=== PATIENT | female | born 1950 | race Caucasian/White ===

== ENCOUNTER 2020-05-26 11:04 | Outpatient (REF) | payer OTHER, SELFPAY ==
[2020-05-26 11:09] VITALS: BP 120/65; PULSE 54; RESP 16; TEMP 36.1; O2SAT 100
[2020-05-26 11:12] VITALS: BMI 22.7
== END 2020-05-26 11:05 | disposition home or self-care (01) ==
LOC: HO.MS 11:04
PROVIDERS: PCP Internal Medicine; Visit Provider Ophthalmology
PROC: (CPT 66821; principal; 2020-05-26 14:00)
DX: H26.492 Other secondary cataract, left eye (principal); Z96.1 Presence of intraocular lens; E07.9 Disorder of thyroid, unspecified; J45.909 Unspecified asthma, uncomplicated; Z79.899 Other long term (current) drug therapy; Z88.8 Allergy status to other drugs, medicaments and biological substances
CPT/HCPCS: 66821

== ENCOUNTER 2022-05-31 13:17 | Outpatient (REF) | payer MEDICARE, OTHER, SELFPAY ==
[2022-05-31 13:56] LABS: MANUAL DIFF FLAG NO
[2022-05-31 13:59] LABS: Basophils Percent Auto 0.6 % (0-2); Eosinophils Absolute Auto 0.1 X10*3/uL (0.0-0.4); Eosinophils Percent Auto 1.1 % (0-4); Hematocrit 39.6 % (37.0-47.0); Hemoglobin 12.8 g/dl (12.0-16.0); Imm Gran Abs Auto 0.02 X10*3/uL (0.00-0.03); Imm Gran Pct Auto 0.4 % (0.0-0.4); Lymphocytes Percent Auto 17.9 % (20-40); Mean Corpuscular HGB Conc 32.3 g/dl (31.0-35.0); Mean Corpuscular Hemoglobin 29.7 pg (27.0-33.0); Mean Corpuscular Volume 91.9 fL (80.0-98.0); Mean Platelet Volume 10.5 fL (9.4-12.3); Monocytes Absolute Auto 0.3 X10*3/uL (0.1-1.2); Monocytes Percent Auto 6.3 % (2-11); Neutrophils Percent Auto 73.7 % (45-73); Platelet Count 211 X10*3/uL (160-400); Red Blood Count 4.31 X10*6/uL (4.20-5.50); Red Cell Distribution Width 11.7 % (11.0-16.0); White Blood Count 5.4 X10*3/uL (4.8-10.8)
[2022-05-31 14:54] LABS: Alanine Aminotransferase 20 U/L (0-31); Albumin Level 4.3 g/dL (3.5-5.0); Alkaline Phosphatase 93 U/L (39-117); Anion Gap 10 (12-20); Aspartate Amino Transferase 21 U/L (5-31); Bilirubin Total 0.6 mg/dL (0.0-1.0); Blood Urea Nitrogen 13 mg/dL (9-16); Calcium 9.7 mg/dL (8.4-10.2); Carbon Dioxide 30 mmol/L (22-29); Chloride 103 mmol/L (96-108); Cholesterol 236 mg/dL; Estimated Glomerular Filt Rate > 60; Glucose Fasting 82 mg/dL (60-99); HDL Cholesterol 89 mg/dL; LDL Cholesterol Calculated 137 mg/dl; Potassium 4.4 mmol/L (3.3-5.1); Sodium 139 mmol/L (135-145); TSH reflex Free T4 1.23 uIU/mL (0.32-4.0); Total Protein 6.9 g/dL (6.5-8.0); Triglycerides 53 mg/dL; Vitamin D 25-OH Total 39.2 ng/mL (>30)
== END 2022-05-31 13:18 | disposition home or self-care (01) ==
LOC: HO.HMGCLDS 13:17
PROVIDERS: PCP Internal Medicine; Visit Provider Internal Medicine
DX: Z00.00 Encounter for general adult medical examination without abnormal findings (principal); E03.9 Hypothyroidism, unspecified; F41.9 Anxiety disorder, unspecified
CPT/HCPCS: 36415; 80053; 80061; 82306; 84443; 85025

== ENCOUNTER 2023-01-19 12:06 | Outpatient (AMB) | payer MEDICARE, OTHER, SELFPAY ==
--- NOTE | 2023-01-19 12:12 | MHC.PC.OV ---
Vital Signs 01/19/23 12:13 Height 5 ft 7 in Weight 142 lb 8 oz BMI 22.3 BP 114/68 Blood Pressure Location Rt brachial Position Sitting Pulse 66 Pulse Source Pulse Oximeter Pulse Oximetry (%) 99 Oxygen Delivery Method Room Air Intake Visit Reasons: 6 month follow up Hypothyroidism Intake Note: pt is here for 6 month follow up Allergies codeine [CODEINE] Allergy (Intermediate, Verified 01/19/23 12:15) HALLUCINATIONS moxifloxacin [Avelox] Allergy (Unknown, Verified 01/19/23 12:15) Unknown Codeine Phosphate Allergy (Unknown, Uncoded 01/19/23 12:15) Unknown Codeine Sulfate Allergy (Unknown, Uncoded 01/19/23 12:15) Unknown Medication List - Last Reconciled 01/19/23 by Renetta Greco MD albuterol sulfate 90 mcg/actuation 2 puffs inhalation Q6H PRN levothyroxine (Synthroid) 50 mcg PO DAILY Tobacco use date assessed: 01/19/23 Fall risk assessment: No Falls in past year Last assessed Fall Risk: 01/19/23 Dental Screening Dental Screen Date: 01/19/23 Did you have a dental visit in the last 12 months?: Yes Did you have a dental problem in the last 6 months where you did not have access to dental care?: No Was dental information given to patient?: Patient has dentist HPI 6 month follow up Hypothyroidism HPI Details Pt presents c/o chronic postnasal drip and episodes of SOB and cough on and off lasting 1-2 days once or twice a month. Pt tried Albuterol with good relief. Patient had secondhand smoking exposure for most of her life. She denies chest pain dyspnea on exertion PND orthopnea. [facility] Medical History (Updated 01/19/23 @ 13:10 by Renetta Greco MD) Annual physical exam Anxiety Hypothyroidism Intermittent asthma Normal Pap smear Thyroid nodule Surgical History (Updated 01/19/23 @ 13:00 by Renetta Greco MD) H/O colonoscopy History of partial thyroidectomy Family History (Updated 01/19/23 @ 12:16 by Leidy Colon CMA) Other Mental health disorder Substance use disorder Social History Housing: House Alcohol intake: current Alcohol intake frequency: a few times a month Patient Tobacco Use Status: Never used Tobacco e-Cigarette/Vaping Use: Never Used Current occupational status: retired Cognitive needs: No Hearing needs: No Vision needs: No Questionnaire Thrive Questionnaire Date Thrive assessed: 07/08/22 VALERI-7 AMB Questionnaire VALERI-7 Date VALERI - 7 assessed: 07/08/22 Source: Developed by Drs. Negro Cr, Mitzy Zayas, Francisco Santos and colleagues, with an educational abner from [employer]. Review of Systems Const All systems reviewed & are unremarkable except as noted in HPI and below Reports no additional complaints Eyes Reports no additional complaints ENT Reports no additional complaints Card Reports no additional complaints Resp Reports no additional complaints GI Reports no additional complaints Physical exam (Primary Care) Vital Signs: Last Vital Signs Pulse 66 01/19/23 12:13 BP 114/68 01/19/23 12:13 Pulse Ox 99 01/19/23 12:13 Oxygen Delivery Method Room Air 01/19/23 12:13 BMI result Body Mass Index 22.3 Tobacco/Smoking Status: Tobacco use Status Tobacco use date assessed 01/19/23 01/19/23 12:17 Patient Tobacco Use Status Never used Tobacco 01/19/23 12:17 e-Cigarette/Vaping Use Never Used 01/19/23 12:17 Thrive Assessment: Date of Thrive Assessment Date Thrive assessed 07/08/22 01/19/23 12:17 Const General: no acute distress HENMT Ears: hearing grossly normal bilaterally Throat: Yes posterior oropharynx normal Eyes General: appearance normal, both eyes and all related structures Neck Neck: Yes supple Resp Effort & Inspection: normal respiratory effort Auscultation: clear to auscultation bilaterally Cardio Rhythm: regular rhythm Heart sounds: S1 normal heart sound present and S2 normal heart sound present Assessment and Plan Assessment & Plan (1) Post-nasal discharge: Code(s): R09.82 - Postnasal drip Plan: Continue antihistamine and Flonase spray. Referred to ENT for evaluation (2) Hyperlipidemia: Code(s): E78.5 - Hyperlipidemia, unspecified Plan: Low-cholesterol diet discussed with the patient (3) Hypothyroidism: Code(s): E03.9 - Hypothyroidism, unspecified Plan: Continue levothyroxine (4) Asthma: Code(s): J45.909 - Unspecified asthma, uncomplicated Plan: Continue albuterol p.r.n. schedule PFT[facility] at [facility] (5) Neutropenia: Code(s): D70.9 - Neutropenia, unspecified Plan: Monitor WBC check vitamin B12 level, Orders: Orders PFT pulmonary function test Today J45.909 - Unspecified asthma, uncomplicated Vitamin B12 and Folate 6 Months E03.9 - Hypothyroidism, unspecified, E55.9 - Vitamin D deficiency, unspecified, E78.5 - Hyperlipidemia, unspecified Comprehensive [place]. Panel Fast 6 Months E03.9 - Hypothyroidism, unspecified, E55.9 - Vitamin D deficiency, unspecified, E78.5 - Hyperlipidemia, unspecified Lipid Panel 6 Months E03.9 - Hypothyroidism, unspecified, E55.9 - Vitamin D deficiency, unspecified, E78.5 - Hyperlipidemia, unspecified Vitamin D 25-OH Total 6 Months E03.9 - Hypothyroidism, unspecified, E55.9 - Vitamin D deficiency, unspecified, E78.5 - Hyperlipidemia, unspecified Complete Blood Count Man Dif 6 Months E03.9 - Hypothyroidism, unspecified, E55.9 - Vitamin D deficiency, unspecified, E78.5 - Hyperlipidemia, unspecified Referrals Ear/Nose/Throat Referral R09.82 - Postnasal drip Coding Level of Care Code Est Pt Level 4 (39290) Diagnoses Post-nasal discharge R09.82 Hyperlipidemia E78.5 Hypothyroidism E03.9 Asthma J45.909 Neutropenia D70.9
[2023-01-19 12:13] VITALS: BP 114/68; PULSE 66; O2SAT 99; BMI 22.3
== END 2023-01-19 13:08 | disposition home or self-care (01) ==
PROVIDERS: Visit Provider Internal Medicine
DX: E03.9 Hypothyroidism, unspecified (principal); J45.909 Unspecified asthma, uncomplicated; D70.9 Neutropenia, unspecified; R09.82 Postnasal drip; E78.5 Hyperlipidemia, unspecified
CPT/HCPCS: 99214

== ENCOUNTER 2023-07-28 08:35 | Outpatient (AMB) | payer MEDICARE, OTHER, SELFPAY ==
--- NOTE | 2023-07-28 08:41 | MHC.PC.OV ---
Vital Signs 07/28/23 08:42 Height 5 ft 7 in Weight 148 lb BMI 23.2 BP 104/66 Blood Pressure Location Lt brachial Position Sitting Pulse 54 Pulse Source Pulse Oximeter Pulse Oximetry (%) 98 Oxygen Delivery Method Room Air Intake Visit Reasons: 6 month follow up Hypothyroidism Intake Note: Pt is here today for 6 months follow up visit. Allergies codeine [CODEINE] Allergy (Intermediate, Verified 07/28/23 08:45) HALLUCINATIONS moxifloxacin [Avelox] Allergy (Unknown, Verified 07/28/23 08:45) Unknown Codeine Phosphate Allergy (Unknown, Uncoded 07/28/23 08:45) Unknown Codeine Sulfate Allergy (Unknown, Uncoded 07/28/23 08:45) Unknown Medication List - Last Reconciled 07/28/23 by Renetta Greco MD albuterol sulfate 90 mcg/actuation 2 puffs inhalation Q6H PRN levothyroxine (Synthroid) 50 mcg PO DAILY Tobacco use date assessed: 07/28/23 Fall risk assessment: No Falls in past year Last assessed Fall Risk: 07/28/23 Dental Screening Dental Screen Date: 07/28/23 Did you have a dental visit in the last 12 months?: Yes Did you have a dental problem in the last 6 months where you did not have access to dental care?: No Was dental information given to patient?: Patient has dentist HPI 6 month follow up Hypothyroidism HPI Details Patient presents for the follow-up on hypothyroidism stable on levothyroxine. She has not fallen low-cholesterol diet for hyperlipidemia. Patient reports a few episodes of wheezing last summer and used albuterol a few times with good relief. She denies nocturnal symptoms of cough wheezing or shortness for breath. [facility] Medical History (Updated 07/28/23 @ 10:20 by Renetta Greco MD) Anxiety Normal Pap smear Intermittent asthma Thyroid nodule Hypothyroidism Annual physical exam Surgical History (Updated 01/19/23 @ 13:00 by Renetta Greco MD) H/O colonoscopy History of partial thyroidectomy Family History (Updated 01/19/23 @ 12:16 by Leidy Colon CMA) Other Mental health disorder Substance use disorder Social History Housing: House Alcohol intake: current Alcohol intake frequency: a few times a month Patient Tobacco Use Status: Never used Tobacco e-Cigarette/Vaping Use: Never Used Current occupational status: retired Cognitive needs: No Hearing needs: No Vision needs: No Questionnaire PHQ-9 Over the last 2 weeks, how often have you been bothered by any of the following problems? 1. Little interest or pleasure in doing things: not at all 2. Feeling down, depressed, or hopeless: not at all 3. Trouble falling or staying asleep, or sleeping too much: not at all 4. Feeling tired or having little energy: not at all 5. Poor appetite or overeating: more than half the days 6. Feeling bad about yourself - or that you are a failure or have let yourself or your family down: not at all 7. Trouble concentrating on things, such as reading the newspaper or watching television: not at all 8. Moving or speaking so slowly that other people could have noticed. Or the opposite - being so fidgety or restless that you have been moving around a lot more than usual: not at all 9. Thoughts that you would be better off or of hurting yourself in some way: not at all Total score: 2 Depression Screening Interpretation: Negative Depression Screening Done: Yes Source: Developed by Drs. Negro Cr, Mitzy Zayas, Francisco Santos and colleagues, with an educational abner from [employer]. Thrive Questionnaire Date Thrive assessed: 07/28/23 I am a: Patient What is your living situation today?: I have a steady place to live Within the past 12 months, did the food you bought not last and you didn't have the money to get more?: Never true Within the past 12 months, did you worry whether your food would run out before you got money to buy more?: Never true Do you have trouble paying for medicines?: No Do you have trouble getting transportation to medical appointments?: No Do you have trouble paying your heating and electricity bill?: No Do you have trouble taking care of your child, family member or friend?: No Do you have trouble with day-to-day activities such as bathing, preparing meals, shopping, managing finances, etc.?: No Are you currently unemployed and looking for a job?: No Are you interested in more education?: No Please select the resources that you would like help with: None AUDIT C Alcohol Use Questionnaire (AUDIT-C) 1. How often do you have a drink containing alcohol?: Monthly or less 2. How many drinks containing alcohol do you have on a typical day when you are drinking?: 1 or 2 3. How often do you have six or more drinks on one occasion?: Never Total Score: 1 VALERI-7 AMB Questionnaire VALERI-7 Date VALERI - 7 assessed: 07/28/23 Feeling nervous, anxious, or on edge: 0 = Not at all Not being able to stop or control worryin = Not at all Worrying too much about different things: 0 = Not at all Trouble relaxin = Not at all Being so restless that it is hard to sit still: 0 = Not at all Becoming easily annoyed or irritable: 0 = Not at all Feeling afraid as if something awful might happen: 0 = Not at all Total VALERI-7 score (0-4 normal; 5-9 mild; 10-14 moderate; 15-21 severe): 0 Source: Developed by Drs. Negro Cr, Mitzy Zayas, Francisco Santos and colleagues, with an educational abner from [employer]. Review of Systems Const All systems reviewed & are unremarkable except as noted in HPI and below Reports no additional complaints Eyes Reports no additional complaints ENT Reports no additional complaints Card Reports no additional complaints Resp Reports no additional complaints GI Reports no additional complaints Reports no additional complaints Musc Reports no additional complaints Physical exam (Primary Care) Vital Signs: Last Vital Signs Pulse 54 07/28/23 08:42 BP 104/66 07/28/23 08:42 Pulse Ox 98 07/28/23 08:42 Oxygen Delivery Method Room Air 07/28/23 08:42 BMI result Body Mass Index 23.2 Tobacco/Smoking Status: Tobacco use Status Tobacco use date assessed 07/28/23 07/28/23 08:47 Patient Tobacco Use Status Never used Tobacco 07/28/23 08:47 e-Cigarette/Vaping Use Never Used 07/28/23 08:42 PHQ-9: PHQ-9 Score PHQ-9: Total score 2 07/28/23 08:52 Depression Screening Interpretation: Negative Thrive Assessment: Date of Thrive Assessment Date Thrive assessed 07/28/23 07/28/23 08:52 Const General: no acute distress HENMT Ears: hearing grossly normal bilaterally Eyes General: appearance normal, both eyes and all related structures Neck Neck: Yes no lymphadenopathy and Yes supple Resp Effort & Inspection: normal respiratory effort Auscultation: clear to auscultation bilaterally Cardio Rhythm: regular rhythm Heart sounds: S1 normal heart sound present and S2 normal heart sound present GI Inspection: Yes normal to inspection Assessment and Plan Assessment & Plan (1) Asthma: Code(s): J45.909 - Unspecified asthma, uncomplicated Plan: For mild asthma continue albuterol p.r.n. obtain PFTs to evaluate for COPD (2) Hyperlipidemia: Comment: Patient declined statins Code(s): E78.5 - Hyperlipidemia, unspecified Plan: Continue low-cholesterol diet (3) Neutropenia: Code(s): D70.9 - Neutropenia, unspecified Plan: Monitor CBC (4) Hypothyroidism: Code(s): E03.9 - Hypothyroidism, unspecified Plan: Continue levothyroxine, follow-up in 6 months (5) Annual physical exam: Code(s): Z00.00 - Encounter for general adult medical examination without abnormal findings Orders: Orders Comprehensive [place]. Panel Fast 6 Months D70.9 - Neutropenia, unspecified, E03.9 - Hypothyroidism, unspecified, E78.5 - Hyperlipidemia, unspecified, Z00.00 - Encounter for general adult medical examination without abnormal findings Complete Blood Count Auto Diff 6 Months D70.9 - Neutropenia, unspecified, E03.9 - Hypothyroidism, unspecified, E78.5 - Hyperlipidemia, unspecified, Z00.00 - Encounter for general adult medical examination without abnormal findings PFT pulmonary function test Today J45.909 - Unspecified asthma, uncomplicated Lipid Panel 6 Months D70.9 - Neutropenia, unspecified, E03.9 - Hypothyroidism, unspecified, E78.5 - Hyperlipidemia, unspecified, Z00.00 - Encounter for general adult medical examination without abnormal findings TSH reflex Free T4 6 Months D70.9 - Neutropenia, unspecified, E03.9 - Hypothyroidism, unspecified, E78.5 - Hyperlipidemia, unspecified, Z00.00 - Encounter for general adult medical examination without abnormal findings Coding Level of Care Code Est Pt Level 4 (03343) Diagnoses Asthma J45.909 Hyperlipidemia E78.5 Neutropenia D70.9 Hypothyroidism E03.9 Annual physical exam Z00.00
[2023-07-28 08:42] VITALS: BP 104/66; PULSE 54; O2SAT 98; BMI 23.2
== END 2023-07-28 10:19 | disposition home or self-care (01) ==
PROVIDERS: PCP Internal Medicine; Visit Provider Internal Medicine
DX: J45.909 Unspecified asthma, uncomplicated (principal); E78.5 Hyperlipidemia, unspecified; D70.9 Neutropenia, unspecified; E03.9 Hypothyroidism, unspecified; Z00.00 Encounter for general adult medical examination without abnormal findings
CPT/HCPCS: 99214

== ENCOUNTER 2024-02-02 08:38 | Outpatient (AMB) | payer MEDICARE, OTHER, SELFPAY ==
--- NOTE | 2024-02-02 08:40 | MHC.PC.OV ---
Vital Signs 02/02/24 08:41 Height 5 ft 7 in Weight 142 lb BMI 22.2 BP 118/72 Blood Pressure Location Lt brachial Position Sitting Pulse 57 Pulse Source Pulse Oximeter Pulse Oximetry (%) 98 Oxygen Delivery Method Room Air Intake Visit Reasons: Annual PE Intake Note: Pt is here today for PE. Allergies codeine [CODEINE] Allergy (Intermediate, Verified 02/02/24 08:42) HALLUCINATIONS moxifloxacin [Avelox] Allergy (Unknown, Verified 02/02/24 08:42) Unknown Codeine Phosphate Allergy (Unknown, Uncoded 02/02/24 08:42) Unknown Codeine Sulfate Allergy (Unknown, Uncoded 02/02/24 08:42) Unknown Medication List - Last Reconciled 02/02/24 by Renetta Greco MD albuterol sulfate 90 mcg/actuation 2 puffs inhalation Q6H PRN levothyroxine (Synthroid) 50 mcg PO DAILY Tobacco use date assessed: 02/02/24 Fall risk assessment: No Falls in past year Last assessed Fall Risk: 02/02/24 Dental Screening Dental Screen Date: 02/02/24 Did you have a dental visit in the last 12 months?: Yes Did you have a dental problem in the last 6 months where you did not have access to dental care?: No Was dental information given to patient?: Patient has dentist HPI Annual PE HPI Details Pt presents for PE. PFSH Medical History Anxiety Normal Pap smear Intermittent asthma Thyroid nodule Hypothyroidism Annual physical exam Surgical History H/O colonoscopy History of partial thyroidectomy Family History Other Mental health disorder Substance use disorder Social History Housing: House Alcohol intake: current Alcohol intake frequency: a few times a month Patient Tobacco Use Status: Never used Tobacco e-Cigarette/Vaping Use: Never Used service: No Current occupational status: retired Cognitive needs: No Hearing needs: No Vision needs: No Questionnaire PHQ-9 Over the last 2 weeks, how often have you been bothered by any of the following problems? 1. Little interest or pleasure in doing things: not at all 2. Feeling down, depressed, or hopeless: not at all 3. Trouble falling or staying asleep, or sleeping too much: not at all 4. Feeling tired or having little energy: not at all 5. Poor appetite or overeating: not at all 6. Feeling bad about yourself - or that you are a failure or have let yourself or your family down: not at all 7. Trouble concentrating on things, such as reading the newspaper or watching television: not at all 8. Moving or speaking so slowly that other people could have noticed. Or the opposite - being so fidgety or restless that you have been moving around a lot more than usual: not at all 9. Thoughts that you would be better off or of hurting yourself in some way: not at all Total score: 0 Depression Screening Interpretation: Negative Depression Screening Done: Yes Source: Developed by Drs. Negro Cr, Mitzy Zayas, Francisco Santos and colleagues, with an educational abner from [employer]. Thrive Questionnaire Date Thrive assessed: 02/02/24 I am a: Parent/Caregiver What is your living situation today?: I have a steady place to live Within the past 12 months, did the food you bought not last and you didn't have the money to get more?: Often true Within the past 12 months, did you worry whether your food would run out before you got money to buy more?: Never true Do you have trouble paying for medicines?: No Do you have trouble getting transportation to medical appointments?: No Do you have trouble paying your heating and electricity bill?: No Do you have trouble taking care of your child, family member or friend?: No Do you have trouble with day-to-day activities such as bathing, preparing meals, shopping, managing finances, etc.?: No Are you currently unemployed and looking for a job?: No Are you interested in more education?: No Please select the resources that you would like help with: Housing/Fdc Currently or been in a relationship where the following occur: No concerns reported and I choose not to answer THRIVE Score: 1 AUDIT C Alcohol Use Questionnaire (AUDIT-C) 1. How often do you have a drink containing alcohol?: Monthly or less 2. How many drinks containing alcohol do you have on a typical day when you are drinking?: 1 or 2 3. How often do you have six or more drinks on one occasion?: Never Total Score: 1 VALERI-7 AMB Questionnaire VALERI-7 Date VALERI - 7 assessed: 02/02/24 Feeling nervous, anxious, or on edge: 0 = Not at all Not being able to stop or control worryin = Not at all Worrying too much about different things: 0 = Not at all Trouble relaxin = Not at all Being so restless that it is hard to sit still: 0 = Not at all Becoming easily annoyed or irritable: 0 = Not at all Feeling afraid as if something awful might happen: 0 = Not at all Total VALERI-7 score (0-4 normal; 5-9 mild; 10-14 moderate; 15-21 severe): 0 Source: Developed by Drs. Negro Cr, Mitzy Zayas, Francisco Santos and colleagues, with an educational abner from [employer]. Review of Systems Const All systems reviewed & are unremarkable except as noted in HPI and below Reports no additional complaints Eyes Reports no additional complaints ENT Reports no additional complaints Card Reports no additional complaints Resp Reports no additional complaints GI Reports no additional complaints Reports no additional complaints Physical exam (Primary Care) Vital Signs: Last Vital Signs Pulse 57 02/02/24 08:41 BP 118/72 02/02/24 08:41 Pulse Ox 98 02/02/24 08:41 Oxygen Delivery Method Room Air 02/02/24 08:41 BMI result Body Mass Index 22.2 Tobacco/Smoking Status: Tobacco use Status Tobacco use date assessed 02/02/24 02/02/24 08:45 Patient Tobacco Use Status Never used Tobacco 02/02/24 08:45 e-Cigarette/Vaping Use Never Used 02/02/24 08:45 PHQ-9: PHQ-9 Score PHQ-9: Total score 0 02/02/24 09:10 Depression Screening Interpretation: Negative Thrive Assessment: Date of Thrive Assessment Date Thrive assessed 02/02/24 02/02/24 08:45 Currently or been in a relationship where the following occur: No concerns reported and I choose not to answer Const General: no acute distress HENMT Head: Yes normal to inspection Ears: hearing grossly normal bilaterally Face and sinus: Yes normal facial exam Mouth: Normal oral and palatal mucosa present Eyes General: appearance normal, both eyes and all related structures Neck Neck: Yes no lymphadenopathy and Yes supple Resp Effort & Inspection: normal respiratory effort Auscultation: clear to auscultation bilaterally Cardio Rhythm: regular rhythm Heart sounds: S1 normal heart sound present and S2 normal heart sound present GI Inspection: Yes normal to inspection Palpation (GI): Soft to palpation Percussion: Yes normal to percussion Auscultation: normal bowel sounds Immunizations pneumoc 20-dougie conj-dip cr(PF) 0.5 mL IM syringe Performing Provider: Renetta Greco MD Performing Location: [facility] Administered by: JALEESA Portillo on 02/02/24 09:31 Dose Route Admin Location Dispensed Lot Number Expiration Date NDC Manager Quality Compliance 0.5 mL IM Right Deltoid 0.5 mL [id number] 01/07/25 6879-1703-05 [employer] Culture Communication VIS Given Date VIS Provided VIS Publication Date 02/02/24 Single Vaccine 21 Eligibility Eligibility Date Funding Source Not [facility] Eligible 02/02/24 Private Assessment and Plan Assessment & Plan (1) Hyperlipidemia: Code(s): E78.5 - Hyperlipidemia, unspecified Plan: Continue pravastatin check lipid profile (2) Vitamin D deficiency: Code(s): E55.9 - Vitamin D deficiency, unspecified Plan: Continue vitamin-D (3) Neutropenia: Code(s): D70.9 - Neutropenia, unspecified Plan: Monitor CBC (4) Annual physical exam: Code(s): Z00.00 - Encounter for general adult medical examination without abnormal findings Plan: Well-balanced diet regular exercise discussed with the patient (5) Hypothyroidism: Code(s): E03.9 - Hypothyroidism, unspecified Plan: Continue Synthroid (6) Asthma: Code(s): J45.909 - Unspecified asthma, uncomplicated Plan: Continue albuterol p.r.n. patient has PFTs scheduled at [facility] Orders: Orders Complete Blood Count Auto Diff 6 Months D70.9 - Neutropenia, unspecified, E55.9 - Vitamin D deficiency, unspecified, E78.5 - Hyperlipidemia, unspecified TSH reflex Free T4 6 Months D70.9 - Neutropenia, unspecified, E55.9 - Vitamin D deficiency, unspecified, E78.5 - Hyperlipidemia, unspecified Vitamin D 25-OH Total 6 Months D70.9 - Neutropenia, unspecified, E55.9 - Vitamin D deficiency, unspecified, E78.5 - Hyperlipidemia, unspecified Pneumococcal 20 Immunization Today Z23 - Encounter for immunization Lipid Panel 6 Months D70.9 - Neutropenia, unspecified, E55.9 - Vitamin D deficiency, unspecified, E78.5 - Hyperlipidemia, unspecified Comprehensive [place]. Panel Fast 6 Months D70.9 - Neutropenia, unspecified, E55.9 - Vitamin D deficiency, unspecified, E78.5 - Hyperlipidemia, unspecified Medications: New pravastatin 20 mg PO DAILY 90 tabs 1RF Changed From levothyroxine (Synthroid) 50 mcg PO DAILY 90 tabs 3RF E03.9 - Hypothyroidism, unspecified To Synthroid (levothyroxine) 50 mcg PO DAILY 90 tabs 3RF NS E03.9 - Hypothyroidism, unspecified Refilled albuterol sulfate 90 mcg/actuation 2 puffs inhalation Q6H PRN 6.7 grams 1RF shortness of breath or wheezing albuterol sulfate 90 mcg/actuation 2 puffs inhalation Q6H PRN 6.7 grams 1RF shortness of breath or wheezing Coding Level of Care Code Est Pt Prev Care >65y(87441) Diagnoses Hyperlipidemia E78.5 Vitamin D deficiency E55.9 Neutropenia D70.9 Annual physical exam Z00.00 Hypothyroidism E03.9 Asthma J45.909
[2024-02-02 08:41] VITALS: BP 118/72; PULSE 57; O2SAT 98; BMI 22.2
== END 2024-02-02 10:36 | disposition home or self-care (01) ==
PROVIDERS: PCP Internal Medicine; Visit Provider Internal Medicine
DX: Z00.00 Encounter for general adult medical examination without abnormal findings (principal); D70.9 Neutropenia, unspecified; E78.5 Hyperlipidemia, unspecified; Z23 Encounter for immunization; E55.9 Vitamin D deficiency, unspecified; E03.9 Hypothyroidism, unspecified; J45.909 Unspecified asthma, uncomplicated
CPT/HCPCS: 90471; 90677; 99397

== ENCOUNTER 2024-06-27 11:15 | Outpatient (REF) | payer MEDICARE, OTHER, SELFPAY ==
--- NOTE | 2024-06-27 11:15 | PFT_ITS ---
Flows: FEV1: 83 % of predicted at 1.97 L FVC: 89 % of predicted at 2.77 L FEV1/FVC: 71 % Bronchodilator response: Present Volumes: Total lung capacity: 87 % of predicted at 4.80 L Residual volume: 94 % of predicted at 2.08 L Slow vital capacity: 85 % of predicted at 2.73 L Expiratory reserve volume: 100 % of predicted at 0.80 L Diffusion capacity: Normal Impression: Reversible moderate obstructive ventilatory defect with positive bronchodilator response. MTDD
== END 2024-06-27 11:16 | disposition home or self-care (01) ==
LOC: HO.RESP 11:15
PROVIDERS: PCP Internal Medicine; Visit Provider Internal Medicine
DX: J45.909 Unspecified asthma, uncomplicated (principal)
CPT/HCPCS: 94010; 94640; 94727; 94729

== ENCOUNTER → 2024-06-27 11:15 | Outpatient (BNV) | payer MEDICARE, OTHER, SELFPAY | PROVIDERS: PCP Internal Medicine; Visit Provider Internal Medicine Pulmonary Disease | DX: J45.909 Unspecified asthma, uncomplicated (principal) | CPT/HCPCS: 94060; 94727; 94729 ==

== ENCOUNTER 2024-08-02 09:32 | Outpatient (AMB) | payer MEDICARE, OTHER, SELFPAY ==
[2024-08-02 09:32] VITALS: BP 114/74; PULSE 55; TEMP 36.7; O2SAT 98; BMI 22.6
--- NOTE | 2024-08-02 09:32 | A.OFFPC_ITS ---
Vital Signs 08/02/24 09:32 Height 5 ft 7 in Weight 144 lb BMI 22.6 BP 114/74 Blood Pressure Location Lt brachial Position Sitting Pulse 55 Pulse Source Pulse Oximeter Temp 98.0 F Temp Source Oral Pulse Oximetry (%) 98 Oxygen Delivery Method Room Air Intake Visit Reasons: 6m f/u Intake Note: Pt is here today for 6 months follow up visit on labs and PFT test. Allergies codeine [CODEINE] Allergy (Intermediate, Verified 08/02/24 09:43) HALLUCINATIONS Codeine Phosphate Allergy (Unknown, Uncoded 08/02/24 09:43) Unknown Codeine Sulfate Allergy (Unknown, Uncoded 08/02/24 09:43) Unknown Medication List - Last Reconciled 08/02/24 by Renetta Greco MD albuterol sulfate 90 mcg/actuation 2 puffs inhalation Q6H PRN pravastatin 20 mg PO DAILY Synthroid (levothyroxine) 50 mcg PO DAILY NS Tobacco use date assessed: 08/02/24 Fall risk assessment: No Falls in past year Last assessed Fall Risk: 08/02/24 Dental Screening Dental Screen Date: 08/02/24 Did you have a dental visit in the last 12 months?: Yes Did you have a dental problem in the last 6 months where you did not have access to dental care?: No Was dental information given to patient?: Patient has dentist HPI 6m f/u HPI Details Patient presents for the follow-up of hypothyroidism and hyperlipidemia stable on current medications. She reports intermittent wheezing occasionally waking up at night. Patient had pulmonary function test consistent with moderate reversible obstruction and normal diffusion capacity consistent with moderate asthma. She complains of right-sided neck pain on and off since April. She denies pain radiating to right upper extremity any weakness in extremities. The pain is positional occasionally worse in the morning after waking up. [facility] Medical History (Updated 08/02/24 @ 10:35 by Renetta Greco MD) Anxiety Normal Pap smear Thyroid nodule Hypothyroidism Annual physical exam Surgical History H/O colonoscopy History of partial thyroidectomy Family History Other Mental health disorder Substance use disorder Social History Housing: House Alcohol intake: current Alcohol intake frequency: a few times a month Patient Tobacco Use Status: Never used Tobacco e-Cigarette/Vaping Use: Never Used service: No Current occupational status: retired Cognitive needs: No Hearing needs: No Vision needs: No Questionnaire Thrive Questionnaire Date Thrive assessed: 07/30/24 I am a: Patient What is your living situation today?: I have a steady place to live Within the past 12 months, did the food you bought not last and you didn't have the money to get more?: Never true Within the past 12 months, did you worry whether your food would run out before you got money to buy more?: Never true Do you have trouble paying for medicines?: No Do you have trouble getting transportation to medical appointments?: No Do you have trouble paying your heating and electricity bill?: No Do you have trouble taking care of your child, family member or friend?: No Do you have trouble with day-to-day activities such as bathing, preparing meals, shopping, managing finances, etc.?: No Are you currently unemployed and looking for a job?: No Are you interested in more education?: No Please select the resources that you would like help with: None THRIVE Score: 0 AUDIT C Alcohol Use Questionnaire (AUDIT-C) 1. How often do you have a drink containing alcohol?: Monthly or less 2. How many drinks containing alcohol do you have on a typical day when you are drinking?: 1 or 2 3. How often do you have six or more drinks on one occasion?: Never Total Score: 1 VALERI-7 AMB Questionnaire VALERI-7 Date VALERI - 7 assessed: 02/02/24 Feeling nervous, anxious, or on edge: 0 = Not at all Not being able to stop or control worryin = Not at all Worrying too much about different things: 0 = Not at all Trouble relaxin = Not at all Being so restless that it is hard to sit still: 0 = Not at all Becoming easily annoyed or irritable: 0 = Not at all Feeling afraid as if something awful might happen: 0 = Not at all Total VALERI-7 score (0-4 normal; 5-9 mild; 10-14 moderate; 15-21 severe): 0 Source: Developed by Mitzy LeonardoW. Marquez, Francisco Santos and colleagues, with an educational abner from [employer]. Review of Systems Const All systems reviewed & are unremarkable except as noted in HPI and below Eyes Reports no additional complaints ENT Reports no additional complaints Card Reports no additional complaints Resp Reports no additional complaints GI Reports no additional complaints Reports no additional complaints Physical exam (Primary Care) Vital Signs: Last Vital Signs Temp 98.0 F 08/02/24 09:32 Pulse 55 08/02/24 09:32 BP 114/74 08/02/24 09:32 Pulse Ox 98 08/02/24 09:32 Oxygen Delivery Method Room Air 08/02/24 09:32 BMI result Body Mass Index 22.6 Tobacco/Smoking Status: Tobacco use Status Tobacco use date assessed 08/02/24 08/02/24 09:46 Patient Tobacco Use Status Never used Tobacco 08/02/24 09:46 e-Cigarette/Vaping Use Never Used 08/02/24 09:33 Thrive Assessment: Date of Thrive Assessment Date Thrive assessed 07/30/24 08/02/24 09:33 Const General: no acute distress HENMT Head: Yes normal to inspection Eyes General: appearance normal, both eyes and all related structures Neck Other: Paraspinal tenderness and muscle spasm lower cervical region right more than left Neck: Yes no lymphadenopathy and Yes supple Resp Effort & Inspection: normal respiratory effort Auscultation: clear to auscultation bilaterally Cardio Rhythm: regular rhythm Heart sounds: S1 normal heart sound present and S2 normal heart sound present GI Inspection: Yes normal to inspection Palpation (GI): Soft to palpation Percussion: Yes normal to percussion Auscultation: normal bowel sounds Coding Level of Care Code Est Pt Level 4 (14031) Diagnoses Neck pain M54.2 Vitamin D deficiency E55.9 Neutropenia D70.9 Hypothyroidism E03.9 Hyperlipidemia E78.5 Asthma J45.909 Assessment & Plan Assessment & Plan (1) Neck pain: Code(s): M54.2 - Cervicalgia Category: Medical Plan: Referred to physical therapy patient will schedule an appointment (2) Vitamin D deficiency: Code(s): E55.9 - Vitamin D deficiency, unspecified Category: Medical Plan: Increase vitamin-D supplement (3) Neutropenia: Code(s): D70.9 - Neutropenia, unspecified Category: Medical Plan: Stable (4) Hypothyroidism: Code(s): E03.9 - Hypothyroidism, unspecified Category: Medical Plan: Continue levothyroxine (5) Hyperlipidemia: Code(s): E78.5 - Hyperlipidemia, unspecified Category: Medical Plan: Continue pravastatin (6) Asthma: Comment: PFT 06/2024 moderate reversible obstruction normal diffusing capacity Code(s): J45.909 - Unspecified asthma, uncomplicated Category: Medical Plan: Treatment options discussed with the patient. Breo 100 mcg will be started for prevention, patient will continue to use albuterol p.r.n. Orders: Orders PT Evaluation and Treatment Today M54.2 - Cervicalgia Lipid Panel 6 Months D70.9 - Neutropenia, unspecified, E03.9 - Hypothyroidism, unspecified, E55.9 - Vitamin D deficiency, unspecified, E78.5 - Hyperlipidemia, unspecified Comprehensive [place]. Panel Fast 6 Months D70.9 - Neutropenia, unspecified, E03.9 - Hypothyroidism, unspecified, E55.9 - Vitamin D deficiency, unspecified, E78.5 - Hyperlipidemia, unspecified TSH reflex Free T4 6 Months D70.9 - Neutropenia, unspecified, E03.9 - Hypothyroidism, unspecified, E55.9 - Vitamin D deficiency, unspecified, E78.5 - Hyperlipidemia, unspecified Vitamin D 25-OH Total 6 Months D70.9 - Neutropenia, unspecified, E03.9 - Hypothyroidism, unspecified, E55.9 - Vitamin D deficiency, unspecified, E78.5 - Hyperlipidemia, unspecified Complete Blood Count Auto Diff 6 Months D70.9 - Neutropenia, unspecified, E03.9 - Hypothyroidism, unspecified, E55.9 - Vitamin D deficiency, unspecified, E78.5 - Hyperlipidemia, unspecified Medications: New Breo Ellipta 100-25 mcg/dose (fluticasone furoate-vilanterol) 1 inh inhalation DAILY 180 ea 3RF NS
== END 2024-08-02 10:38 | disposition home or self-care (01) ==
PROVIDERS: PCP Internal Medicine; Visit Provider Internal Medicine
DX: M54.2 Cervicalgia (principal); E55.9 Vitamin D deficiency, unspecified; D70.9 Neutropenia, unspecified; E03.9 Hypothyroidism, unspecified; E78.5 Hyperlipidemia, unspecified; J45.909 Unspecified asthma, uncomplicated

== ENCOUNTER → 2024-08-02 09:32 | Outpatient (BNVA) | payer MEDICARE, OTHER, SELFPAY | PROVIDERS: PCP Internal Medicine; Visit Provider Internal Medicine | DX: M54.2 Cervicalgia (principal); E55.9 Vitamin D deficiency, unspecified; D70.9 Neutropenia, unspecified; E03.9 Hypothyroidism, unspecified; E78.5 Hyperlipidemia, unspecified; J45.909 Unspecified asthma, uncomplicated | CPT/HCPCS: 99212 ==

== ENCOUNTER 2025-03-12 11:13 | Outpatient (AMB) | payer MEDICARE, OTHER, SELFPAY ==
--- NOTE | 2025-03-12 11:23 | MHC.PC.OV ---
Vital Signs 03/12/25 11:26 Height 5 ft 7 in Weight 142 lb BMI 22.2 BP 108/66 Blood Pressure Location Lt brachial Position Sitting Respiration 18 Pulse 61 Pulse Source Pulse Oximeter Temp 98.2 F Temp Source Oral Pulse Oximetry (%) 98 Oxygen Delivery Method Room Air Intake Visit Reasons: PE Intake Note: Pt is here today for PE. Allergies codeine (CODEINE) Allergy (Intermediate, Verified 03/12/25 11:44) HALLUCINATIONS Codeine Phosphate Allergy (Unknown, Uncoded 03/12/25 11:44) Unknown Codeine Sulfate Allergy (Unknown, Uncoded 03/12/25 11:44) Unknown Medication List - Last Reconciled 03/12/25 by Renetta Greco MD albuterol sulfate 90 mcg/actuation 2 puffs inhalation Q6H PRN levothyroxine (Synthroid) 12.5 mcg (1/2 x 25 mcg) PO DAILY pravastatin 20 mg PO DAILY Synthroid (levothyroxine) 50 mcg PO DAILY NS Tobacco use date assessed: 03/12/25 Fall risk assessment: No Falls in past year Last assessed Fall Risk: 03/12/25 Dental Screening Dental Screen Date: 03/12/25 Did you have a dental visit in the last 12 months?: Yes Did you have a dental problem in the last 6 months where you did not have access to dental care?: No Was dental information given to patient?: Patient has dentist HPI PE HPI Details Pt presents for PE. Mild asthma is stable on Albuterol prn. Pt c/o chronic neck pain radiating to R shoulder and RUE. Pt completed PT without improvement. [facility] Medical History (Updated 03/12/25 @ 20:59 by Renetta Greco MD) Anxiety Normal Pap smear Thyroid nodule Hypothyroidism Annual physical exam Surgical History (Updated 03/12/25 @ 12:31 by Renetta Greco MD) H/O colonoscopy History of partial thyroidectomy Family History (Updated 03/12/25 @ 11:47 by JALEESA Portillo) Father No problems noted. Mother Hypertension Other Mental health disorder Substance use disorder Social History Housing: House Alcohol intake: current Alcohol intake frequency: a few times a month Patient Tobacco Use Status: Never used Tobacco e-Cigarette/Vaping Use: Never Used service: No Current occupational status: retired Cognitive needs: No Hearing needs: No Vision needs: No Questionnaire PHQ-9 Over the last 2 weeks, how often have you been bothered by any of the following problems? 1. Little interest or pleasure in doing things: not at all 2. Feeling down, depressed, or hopeless: not at all 3. Trouble falling or staying asleep, or sleeping too much: not at all 4. Feeling tired or having little energy: not at all 5. Poor appetite or overeating: not at all 6. Feeling bad about yourself - or that you are a failure or have let yourself or your family down: not at all 7. Trouble concentrating on things, such as reading the newspaper or watching television: not at all 8. Moving or speaking so slowly that other people could have noticed. Or the opposite - being so fidgety or restless that you have been moving around a lot more than usual: not at all 9. Thoughts that you would be better off or of hurting yourself in some way: not at all Total score: 0 Depression Screening Interpretation: Negative Depression Screening Done: Yes 52676 - PHQ-9 Billing: Yes Source: Developed by Drs. Negro Cr, Mitzy Zayas, Francisco Santos and colleagues, with an educational abner from [employer] Thrive Questionnaire Date Thrive assessed: 03/12/25 I am a: Patient What is your living situation today?: I have a steady place to live Within the past 12 months, did the food you bought not last and you didn't have the money to get more?: Never true Within the past 12 months, did you worry whether your food would run out before you got money to buy more?: Never true Do you have trouble paying for medicines?: No Do you have trouble getting transportation to medical appointments?: No Do you have trouble paying your heating and electricity bill?: No Do you have trouble taking care of your child, family member or friend?: No Do you have trouble with day-to-day activities such as bathing, preparing meals, shopping, managing finances, etc.?: No Are you currently unemployed and looking for a job?: No Are you interested in more education?: No Please select the resources that you would like help with: None Currently or been in a relationship where the following occur: No concerns reported THRIVE Score: 0 AUDIT C Alcohol Use Questionnaire (AUDIT-C) 1. How often do you have a drink containing alcohol?: Monthly or less 2. How many drinks containing alcohol do you have on a typical day when you are drinking?: 1 or 2 3. How often do you have six or more drinks on one occasion?: Never Total Score: 1 VALERI-7 AMB Questionnaire VALERI-7 Date VALERI - 7 assessed: 03/12/25 Feeling nervous, anxious, or on edge: 0 = Not at all Not being able to stop or control worryin = Not at all Worrying too much about different things: 0 = Not at all Trouble relaxin = Not at all Being so restless that it is hard to sit still: 0 = Not at all Becoming easily annoyed or irritable: 0 = Not at all Feeling afraid as if something awful might happen: 0 = Not at all Total VALERI-7 score (0-4 normal; 5-9 mild; 10-14 moderate; 15-21 severe): 0 Source: Developed by Drs. Negro Cr, Mitzy Zaays, Francisco Santos and colleagues, with an educational abner from [employer] VALERI-7 Assessment Billing VALERI-7 Assessment Tool: VALERI-7 Assessment 50456 Review of Systems Const All systems reviewed & are unremarkable except as noted in HPI and below Eyes Reports no additional complaints ENT Reports no additional complaints Card Reports no additional complaints Resp Reports no additional complaints GI Reports no additional complaints Reports no additional complaints Physical exam (Primary Care) Vital Signs: Last Vital Signs Temp 98.2 F 03/12/25 11:26 Pulse 61 03/12/25 11:26 Resp 18 03/12/25 11:26 BP 108/66 03/12/25 11:26 Pulse Ox 98 03/12/25 11:26 Oxygen Delivery Method Room Air 03/12/25 11:26 BMI result Body Mass Index 22.2 Tobacco/Smoking Status: Tobacco use Status Tobacco use date assessed 03/12/25 03/12/25 11:48 Patient Tobacco Use Status Never used Tobacco 03/12/25 11:48 e-Cigarette/Vaping Use Never Used 03/12/25 11:24 PHQ-9: PHQ-9 Score PHQ-9: Total score 0 03/12/25 12:33 Depression Screening Interpretation: Negative Thrive Assessment: Date of Thrive Assessment Date Thrive assessed 03/12/25 03/12/25 11:48 Currently or been in a relationship where the following occur: No concerns reported Const General: no acute distress HENMT Head: Yes normal to inspection Ears: TM's normal bilaterally Face and sinus: Yes normal facial exam Mouth: Normal oral and palatal mucosa present Throat: Yes posterior oropharynx normal Eyes General: appearance normal, both eyes and all related structures Neck Other: DROM in C spine, paraspinal tendereness b/l lower cervical region, both shoulder with full ROM, motor str 5/5 jacob, DTR +2 b/l Neck: Yes no lymphadenopathy and Yes supple Resp Effort & Inspection: normal respiratory effort Auscultation: clear to auscultation bilaterally Cardio Rhythm: regular rhythm Heart sounds: S1 normal heart sound present and S2 normal heart sound present GI Inspection: Yes normal to inspection Palpation (GI): Soft to palpation Percussion: Yes normal to percussion Auscultation: normal bowel sounds Coding Level of Care Code Est Pt Prev Care >65y(41305) Diagnoses Cervical radiculopathy M54.12 Thyroid nodule E04.1 Hypothyroidism E03.9 Hyperlipidemia E78.5 Asthma J45.909 Additional Codes VALERI-7 Assessment Billing - VALERI-7 Assessment Tool: VALERI-7 Assessment 61090 ([id number]) PHQ-9 - 06704 - PHQ-9 Billing: Yes ([id number]) Assessment & Plan Assessment & Plan (1) Cervical radiculopathy: Code(s): M54.12 - Radiculopathy, cervical region Category: Medical Plan: check XR and C spine MR to r/o disc herniation (2) Thyroid nodule: Comment: multiple and R 1.7cm cyst and solid component 12/2018, 10/31 unchanged Code(s): E04.1 - Nontoxic single thyroid nodule Category: Medical Plan: repeat thyroid US (3) Hypothyroidism: Code(s): E03.9 - Hypothyroidism, unspecified Category: Medical Plan: add 12.5 mcg to 50 mcg and repeat TSH in 2 months (4) Hyperlipidemia: Code(s): E78.5 - Hyperlipidemia, unspecified Category: Medical Plan: cont 1./2 tabl of Pravastatin (5) Asthma: Comment: PFT 06/2024 moderate reversible obstruction normal diffusing capacity, pt declined using Breo Code(s): J45.909 - Unspecified asthma, uncomplicated Category: Medical Plan: cont Albuterol prn Orders: Orders XR cervical spine 2V Today M54.12 - Radiculopathy, cervical region TSH reflex Free T4 2 Months E03.9 - Hypothyroidism, unspecified, E04.1 - Nontoxic single thyroid nodule, E78.5 - Hyperlipidemia, unspecified Comprehensive [place]. Panel Fast 1 Year E03.9 - Hypothyroidism, unspecified, Z00.00 - Encounter for general adult medical examination without abnormal findings Lipid Panel 1 Year E03.9 - Hypothyroidism, unspecified, Z00.00 - Encounter for general adult medical examination without abnormal findings MR cervical spine wo con Today M54.12 - Radiculopathy, cervical region US thyroid Today E04.1 - Nontoxic single thyroid nodule Lipid Panel 2 Months E03.9 - Hypothyroidism, unspecified, E04.1 - Nontoxic single thyroid nodule, E78.5 - Hyperlipidemia, unspecified Complete Blood Count Auto Diff 1 Year E03.9 - Hypothyroidism, unspecified, Z00.00 - Encounter for general adult medical examination without abnormal findings TSH reflex Free T4 1 Year E03.9 - Hypothyroidism, unspecified, Z00.00 - Encounter for general adult medical examination without abnormal findings Vitamin D 25-OH Total 1 Year E03.9 - Hypothyroidism, unspecified, Z00.00 - Encounter for general adult medical examination without abnormal findings Medications: New levothyroxine (Synthroid) take with Synthroid 50 mcg 12.5 mcg (1/2 x 25 mcg) PO DAILY 90 tabs 0RF Changed From pravastatin 20 mg PO DAILY 90 tabs 1RF To pravastatin 1/2 tab daily 20 mg PO DAILY
[2025-03-12 11:26] VITALS: BP 108/66; PULSE 61; RESP 18; TEMP 36.8; O2SAT 98; BMI 22.2
== END 2025-03-12 12:43 | disposition home or self-care (01) ==
LOC: HO.HMCC 11:15
PROVIDERS: PCP Internal Medicine; Visit Provider Internal Medicine
DX: Z00.00 Encounter for general adult medical examination without abnormal findings (principal); M54.12 Radiculopathy, cervical region; E04.1 Nontoxic single thyroid nodule; E03.9 Hypothyroidism, unspecified; E78.5 Hyperlipidemia, unspecified; J45.909 Unspecified asthma, uncomplicated

== ENCOUNTER 2025-03-12 11:13 | Outpatient (REF) | payer MEDICARE, OTHER, SELFPAY ==
--- NOTE | ~2025-03-12 | XR_ITS ---
EXAMINATION: XR CERVICAL SPINE CLINICAL INFORMATION: M54.12 - Radiculopathy, cervical region COMPARISON: None available. TECHNIQUE: AP and lateral views FINDINGS: Craniocervical junction is intact. Marginal osteophyte formation, decreased intervertebral disc height and endplate sclerosis, C4-5 and C5-6 level. Grade 1 anterolisthesis C3-4. Grade 1 retrolisthesis C4-5 and possibly C5-6. Bilateral facet joint hypertrophy at multiple levels. Vascular clips in the right midline soft tissue neck probably related to prior thyroid procedure. No lytic or blastic lesions. XR/XR cervical spine 2V IMPRESSION: Multilevel cervical spondylosis C4 C6 resulting in grade 1 anterolisthesis C3-4 and grade 1 retrolisthesis C4-5 and possibly C5-6. Electronically signed by: Brodie Lugo MD 03/12/2025 01:58 PM EDT
== END 2025-03-12 11:14 | disposition home or self-care (01) ==
LOC: HO.HMGCX 11:13
PROVIDERS: PCP Internal Medicine; Visit Provider Internal Medicine
DX: M54.12 Radiculopathy, cervical region (principal); E04.1 Nontoxic single thyroid nodule; E03.9 Hypothyroidism, unspecified; E78.5 Hyperlipidemia, unspecified; J45.909 Unspecified asthma, uncomplicated; Z79.899 Other long term (current) drug therapy; Z79.890 Hormone replacement therapy
CPT/HCPCS: 72040; 96127; 99397

== ENCOUNTER → 2025-03-12 13:04 | Outpatient (BNV) | payer MEDICARE, OTHER, SELFPAY | PROVIDERS: PCP Internal Medicine; Visit Provider Radiology Diagnostic Radiology | DX: M47.812 Spondylosis without myelopathy or radiculopathy, cervical region (principal) | CPT/HCPCS: 72040 ==

== ENCOUNTER → 2025-04-01 09:49 | Outpatient (BNV) | payer MEDICARE, OTHER, SELFPAY | PROVIDERS: PCP Internal Medicine; Visit Provider Radiology Diagnostic Radiology | DX: M47.22 Other spondylosis with radiculopathy, cervical region (principal); M99.61 Osseous and subluxation stenosis of intervertebral foramina of cervical region | CPT/HCPCS: 72141 ==

== ENCOUNTER 2025-04-01 09:53 | Outpatient (REF) | payer MEDICARE, OTHER, SELFPAY ==
--- NOTE | ~2025-04-01 | MR_ITS ---
EXAMINATION: MR CERVICAL SPINE WITHOUT CONTRAST CLINICAL INFORMATION: Cervical radiculopathy. 74-year-old female, neck pain radiating down neck to posterior right shoulder. COMPARISON: No prior MRI. Radiographs of the C-spine 03/12/2025. TECHNIQUE: Multiplanar multisequence MR imaging of the cervical spine was done prior to and without the administration IV gadolinium. Examination was performed on a 1.5 Chetna Siemens unit, using standard sequences. FINDINGS: CORONAL ALIGNMENT: -There is a minimal right convex scoliosis, apex at C6. SAGITTAL ALIGNMENT: -There is a normal lordosis. -2 mm degenerative anterolisthesis of C3 on C4 -2 mm degenerative retrolisthesis of C5 on C6. -2 mm degenerative anterolisthesis of C6 on C7. CRANIOCERVICAL JUNCTION/C1-2 ARTICULATIONS: -Intact and aligned. Mild degenerative changes. VERTEBRAL BODIES/BONE MARROW: -There is no compression deformity or suspicious bone lesion. No acute fracture. -There are mild mixed sclerotic and edematous type endplate changes present at C4-5, and C5-6. -There is edema in the right C2-3 articular facets, presumably degenerative. -No additional gross bone marrow edema. DISCS: -Severe disc degeneration is present at C4-5 and C5-6. -Mild loss of disc height and signal at the other levels. CERVICAL CORD: -Normal in caliber and signal throughout. There is no definitive regional cord impingement. -There is no cord thinning or expansion. PARAVERTEBRAL SOFT TISSUES: -Normal. -A saturation band obscures the thyroid. -Biapical pleural parenchymal scarring is noted. VISUALIZED INTRACRANIAL STRUCTURES: -Normal appearance. AXIAL DISC SPACE IMAGING: C2-C3: There is no central canal or left neural foraminal narrowing. There are severe right hypertrophic degenerative facet changes. There is moderate right neural foraminal narrowing. C3-C4: No central canal narrowing. Moderate left hypertrophic degenerative facet changes are present resulting in moderate to severe left neural foraminal narrowing. C4-C5: There is a shallow disc osteophytic ridge complex, contiguous with bilateral uncinate spurring bilaterally. There are mild bilateral hypertrophic degenerative facet changes. There is no significant central canal narrowing. There is moderate to severe left neural foraminal impingement. There is mild right neural foraminal narrowing. C5-C6: There is a dorsal disc osteophytic ridge complex, contiguous with bilateral uncinate spurring. There are left greater than right moderate hypertrophic degenerative facet changes, and left greater than right uncinate spurs. There is minimal central canal narrowing. There is severe left and mild right neural foraminal narrowing. C6-C7: There is no disc pathology. Mild left greater than right degenerative hypertrophic facet changes. There is no central canal narrowing. There is mild left neural foraminal narrowing. C7-T1: There is no significant central canal or neural foraminal narrowing. MR/MR cervical spine wo con IMPRESSION: 1. Moderate to advanced cervical spondylosis most significant at C4-5 and C5-C6 as described above. There is no high-grade central canal stenosis or cord impingement or signal abnormality present. There is multilevel predominantly left neural foraminal narrowing secondary to uncinate and facet hypertrophic spurring. 2. There are mixed edematous and sclerotic endplate changes at C4-5 and C5-6, with to severe accompanying disc degeneration. 3. There are several mild degenerative subluxations. There is significant multilevel facet degeneration and hypertrophy, as discussed above. Electronically signed by: Tuan Sheppard MD 04/01/2025 11:18 AM EDT
== END 2025-04-01 09:54 | disposition home or self-care (01) ==
LOC: HO.MRI 09:53
PROVIDERS: PCP Internal Medicine; Visit Provider Internal Medicine
DX: M54.12 Radiculopathy, cervical region (principal)
CPT/HCPCS: 72141

== ENCOUNTER 2025-04-15 10:28 | Outpatient (AMB) | payer MEDICARE, OTHER, SELFPAY ==
--- NOTE | 2025-04-15 10:33 | A.SPINEOV_ITS ---
Vital Signs 04/15/25 10:37 Height 5 ft 7.5 in Weight 145 lb BMI 22.4 Intake Visit Reasons: Neck pain Intake Note: Ms. Alejandro is here today c/o neck pain that radiates to the right upper back. Commercial Electrician Required: No Allergies codeine (CODEINE) Allergy (Intermediate, Verified 04/15/25 10:38) HALLUCINATIONS Codeine Phosphate Allergy (Unknown, Uncoded 03/12/25 11:44) Unknown Codeine Sulfate Allergy (Unknown, Uncoded 03/12/25 11:44) Unknown Physical Exam Vital Signs: BMI result Body Mass Index 22.4 Assessment & Plan Assessment & Plan (1) Neck pain: Code(s): M54.2 - Cervicalgia Category: Medical Plan Dear Dr Greco, Thank you for referring Mrs Alejandro to our office today. She is a very nice 74-year-old female comes into the office today for evaluation of neck pain that has been going on for about 1 year. The patient reports it started when she was doing some yd work and it sounds like she was pulling some would out of the ground and when she pulled she felt something either pop or strain on her neck and away that she had not felt before. Initially the pain was on the right side of her neck going down her trapezius and there was a component of pain in what sounds like the right side of the back of the head radiating upwards. She underwent physical therapy and that pain in the back of the neck and head seemed to go away. The right-sided pain down along her trapezius area never seemed to really go away. It is an annoying persistent pain but it is not incapacitating or disabling. She has no upper extremity symptoms to report. She has tried mbcj-net-vwditth medications as needed without much relief. At this point she is not really sure how to make it get any better. She has good days and bad days. It does seem to interfere with her sleep somewhat but again it is not the kind of thing that keeps her up all night. PMH: She is reasonably healthy, she has a history of high cholesterol, she may have some degree of COPD as well, osteopenia, thyroidectomy, tubal ligation. Denies any major systemic disease, cardiopulmonary major issues, liver or kidney disease, major abdominal surgeries, bleeding disorders, blood clots etc.. Social hx: She has not smoke, occasionally uses alcohol but does not use any recreational drugs Medications: Levothyroxine, multivitamin, vitamin-D, pravastatin in an allergy pill Allergies: Please see the [employer] list Physical exam: Awake alert oriented no acute distress, strength in the upper extremities is full, reflexes are normal. Lower extremity strength and reflexes also normal. Imaging review: Cervical MRI done at [facility] reveals a fairly arthritic looking cervical spine with severe disc degeneration at C4-5 and C5-6. She has some degree of facet arthropathy at C2-3 as well. No evidence of any spinal cord compression. There are varying degrees of foraminal stenosis seen throughout the cervical spine, specifically at C4-5 and C5-6. Impression: 74-year-old female who has had neck pain on the right side radiating down along the trapezius now for 1 year following an incident where she was pulling something out of the ground and felt abrupt onset of pain. I sat down with her and reviewed her MRI. We discussed the natural history of cervical degenerative disc disease and general arthritis of the cervical spine. Her story fits better with some kind of muscular injury that was caused when she was straining and pulling on the piece of wood she was pulling out of the ground rather than arthritic etiology. Typically that would be chronic neck pain diffuse in nature, usually associated with some kind of radiculopathy or pain down the arm with tingling and numbness. It would be hard to tell her with any degree of certainty how helpful surgery would be. I gave her a referral back to physical therapy to see if we can work this out. Sometimes these muscular injuries to the neck can be very persistent and take a long time to get better. If it just does not seem to want to go away, I think she could consider a cortisone injection as an alternative option. Surgery would be the absolute last resort. Right now the pain is not all that debilitating so she would just like to try the physical therapy and we can reassess down the road. Thank you for allowing us to care for your patient. The total time spent with this visit with this patient was 45 minutes reviewing history, physical exam, cervical spine imaging review, and implementation of treatment plan or further diagnostic testing Oswald Lomeli MD,PhD [facility] Orders: Orders PT Evaluation and Treatment Today M54.2 - Cervicalgia Coding Level of Care Code New Pt Level 4 (11328) Diagnoses Neck pain M54.2
[2025-04-15 10:37] VITALS: BMI 22.4
--- OUTSIDE RECORDS SUMMARY | 2025-04-15 12:20 | XMS_ITS | Data Portability ---
Author Organization [place] [facility], [facility] Address [address] [place] [address] Care Team Providers Care Shake Loader Name Role Phone BRIGIDOJAVIERMeraRHETT Referring Provider [phone] Assessment Encounter Date Assessment Date Assessment LastModified by Organization Details LastModified Time 09/19/2024 09/19/2024 Assessment: Decreased Trp R UT noted today. Plan: Progress as PT sarah. Not available 09/19/2024 14:36:11 09/24/2024 09/24/2024 Assessment: PT with good sarah to therex, c4-c7 cont with R>L facet jt/ ms ttp. Plan: Progress as PT sarah. Not available 09/25/2024 23:33:52 09/26/2024 09/26/2024 Assessment: PT with good sarah to manual therapy and light postural strength exs Plan: Progress as PT sarah. Not available 09/28/2024 01:07:17 10/01/2024 10/01/2024 Assessment: Progressed mini ball exercises , Pt appeared to sarah well. Plan: Progress as PT sarah. Not available 10/01/2024 14:44:57 10/03/2024 10/03/2024 Assessment: Some increased sarah to therex noted today. , Pt appeared to sarah well. Plan: Progress as PT sarah. Not available 10/03/2024 14:55:29 Plan of Treatment Reminders Order Date Submit Date Provider Last Modified By Organization Details Last Modified Time Details Appointments None record ed. Lab None record ed. Referral None record ed. Procedures None record ed. Surgeries None record ed. Imaging None record ed. Medication Orders None record ed. Patient TargetsNo targets recorded. Patient InstructionsNo instructions recorded. Reason for Referral None Reported. Procedures Surgical History Date Name Laterality Status Provider Name and Address Organization Details Recorded Time 5 12012 Therapeutic Exercise (1:1) completed Pema Acosta, LABEL CODER [address], [place], [address], [facility] 10/03/2024 13:00:28 5 19411: Manual therapy completed Pema Acosta, LABEL CODER [address], [place], [address], [facility] 10/03/2024 13:00:28 5 06557 Therapeutic Exercise (1:1) completed Pema Acosta, LABEL CODER [address], [place], [address], [facility] 10/01/2024 14:42:22 5 85573: Manual therapy completed Pema Acosta, LABEL CODER [address], [place], [address], [facility] 10/01/2024 13:00:25 5 86348 Therapeutic Exercise (1:1) completed Asael Clancy, PT [address], [place], [address], [facility] 09/28/2024 01:02:50 5 46616: Manual therapy completed Asael Clancy, PT [address], [place], [address], [facility] 09/28/2024 01:02:50 5 30563 Therapeutic Exercise (1:1) completed Asael Clancy, PT [address], [place], [address], [facility] 09/25/2024 23:30:07 5 89835: Manual therapy completed Asael Clancy, PT [address], [place], [address], [facility] 09/25/2024 23:34:43 5 08953 Therapeutic Exercise (1:1) completed Pema Formjeanster, LABEL CODER [address], [place], [address], [facility] 09/19/2024 14:32:09 5 71332: Manual therapy completed Pema Formjeanstcici, LABEL CODER [address], [place], [address], [facility] 09/19/2024 14:32:09 5 94838 Therapeutic Exercise (1:1) completed Pema Formantonio, LABEL CODER [address], [place], [address], [facility] 09/17/2024 14:59:54 01462: Manual therapy completed Pema Acosta, LABEL CODER [address], [place], [address], [facility] 09/17/2024 13:17:50 5 79136 Therapeutic Exercise (1:1) completed Pema Acosta, LABEL CODER [address], [place], [address], [facility] 09/12/2024 13:18:57 5 92880: Manual therapy completed Pema Acosta, LABEL CODER [address], [place], [address], [facility] 09/12/2024 13:18:57 5 08155 Therapeutic Exercise (1:1) completed Pema Formantonio, LABEL CODER [address], [place], [address], [facility] 09/10/2024 13:52:21 5 00175: Manual therapy completed Pema Acosta, LABEL CODER [address], [place], [address], [facility] 09/10/2024 13:12:28 5 48174 Therapeutic Exercise (1:1) completed Pema Acosta, LABEL CODER [address] [facility], [place], [address], [facility] 09/07/2024 15:38:38 5 74202: Manual therapy completed Pema Acosta, LABEL CODER [address], [place], [address], [facility] 09/07/2024 15:38:50 5 59684 Therapeutic Exercise (1:1) completed Asael Clancy, PT [address], [place], [address], [facility] 09/07/2024 12:33:43 5 21951: Low complexity PT Eval completed Asael Clancy, PT [address], [place], [address], [facility] 09/07/2024 12:33:48 5 G8417 BMI Above Upper Parameters, F/U Documented completed Asael Clancy, PT [address], [place], [address], [facility] 09/07/2024 12:39:31 5 G8427 Current Medication Documented completed Asael Clancy, PT [address], [place], [address], [facility] 09/07/2024 12:39:50 Imaging Results None recorded. Procedure Notes None recorded. Medical Equipment None Reported. Allergies Allergen ID Allergen Name Allergen Category Reaction Reaction Severity Criticality Documentation Date Start Date Code Code System Note Provider Name and Address Organization Details Recorded Time 841204 Grass pollen (substanc e) environme nt,medica tion Not available Not available Not available 09/12/20232008 52977 7009 SNOMED Aller gyRea ction : 'Skin React ion'; Not Available [facility] 4 16:01:31 740654 Dust mite Not available Not available Not available Not available 09/12/20232008 Aller gyNam e: 'Dust '; Aller gyRea ction : 'Skin React ion'; Not Available [facility] 16:01:31 077462 codeine medicatio n Not available Not available Not available 09/12/20232014 2670 RxNorm Not Available [facility] 16:01:31 Vitals None Recorded Social History None recorded. Functional Status None recorded. Mental Status None recorded. Family History Nothing Reported. Medical History No medical history recorded. Past Encounters Encounter ID Performer Location Encounter Start Date Encounter Closed Date Diagnosis/Indication Diagnosis SNOMED-CT Code Diagnosis ICD10 Code Diagnosis IMO Codes Diagnosis Note [id number] Asael Clancy, PT [facility] [address] [place] [address] 09/05/2024 12:47:38 09/05/2024 13:27:14 Neck pain [id number] M54.2 [id number] Pema Formjeanste r, LABEL CODER [facility] [address] [place] [address] 09/10/2024 13:06:31 09/10/2024 14:24:47 Neck pain [id number] M54.2 621475 [id number] Pema Formejeste r, LABEL CODER [facility] [address] [place] [address] 09/07/2024 13:44:41 09/07/2024 14:48:31 Neck pain 55246046 M54.2 [id number] Pema Formejeste r, LABEL CODER [facility] [address] [place] [address] 09/12/2024 13:00:41 09/12/2024 14:41:43 Neck pain 07233900 M54.2 [id number] Pema Formejeste r, LABEL CODER [facility] [address] [place] [address] 09/17/2024 13:02:00 09/17/2024 13:21:09 Neck pain [id number] M54.2 [id number] Pema Formejeste r, LABEL CODER [facility] [address] [place] [address] 09/19/2024 13:01:34 09/19/2024 14:42:40 Neck pain [id number] M54.2 [id number] Asael Mccordo, PT [facility] [address] [place] [address] 09/24/2024 12:57:12 09/24/2024 14:15:28 Neck pain [id number] M54.2 [id number] Asael Roseonso, PT [facility] [address] [place] [address] 09/26/2024 12:59:04 09/26/2024 14:22:28 Neck pain [id number] M54.2 [id number] Pema Formejeste r, LABEL CODER [facility] [address] [place] [address] 10/01/2024 12:52:34 10/01/2024 13:24:12 Neck pain [id number] M54.2 [id number] Pema Formejeste r, LABEL CODER [facility] [address] [place] [address] 10/03/2024 12:58:21 10/03/2024 14:26:19 Neck pain [id number] M54.2 [id number] Health Concerns Section Related Observation LastModified by Organization Detai ls LastModified Time None Recorded Concern Status LastModified by Organization Details LastModified Time None Recorded Advance Directives Directive None Recorded Payers Insurance Date Sequence Insurance Name Policy Number Policy Garcia Covered Member ID Garcia Member ID Guarantor Name 10/08/2024 2 [facility] (MEDICAID HMO) [id number] Yumiko Braxtonor [id number] Yumiko Belle [place]avia 09/05/2024 1 [place] [facility] Yumiko Belle Flavia [id number] Yumiko Belle Flavia 09/12/2024 1 [place] [employer] Yumiko Belle Flavia [id number] Yumiko Belle Flavia Notes Date Note Type Note Provider Name and Address Organization Details Recorded Time 09/19/2024 text/html Patient reports is not as tight as last time but not as tight as last time. Pema Acosta, LABEL CODER [address], [place], [address], [facility] 09/19/2024 14:36:43 09/24/2024 text/html Patient states had some increased tension/soreness R neck with standing T-band exs, stopped performing and seemed like it help decrease sx's. Pt states overall R c/s and Utrap px is less. Asael Clancy, PT [address], [place], [address], [facility] 09/25/2024 23:34:58 09/26/2024 text/html Patient states overall R c/s feeling better though still feels tight and occasional px Asael Clancy, PT [address], [place], [address], [facility] 09/28/2024 01:11:28 10/01/2024 text/html Patient states she went for a walk the other day and feels that increased her neck pain.. Pema Acosta, LABEL CODER [address], [place], [address], [facility] 10/01/2024 14:45:17 10/03/2024 text/html Patient reports cont tension in her neck but getting better. Pema Acosta, LABEL CODER [address], [place], [address], [facility] 10/03/2024 14:57:39
== END 2025-04-15 11:24 | disposition home or self-care (01) ==
LOC: HO.HNS 10:28
PROVIDERS: PCP Internal Medicine; Referring Provider Internal Medicine; Visit Provider Physician Assistant
DX: M54.2 Cervicalgia (principal)
CPT/HCPCS: 99204

== ENCOUNTER → 2025-04-15 10:28 | Outpatient (BNVA) | payer MEDICARE, OTHER, SELFPAY | PROVIDERS: PCP Internal Medicine; Referring Provider Internal Medicine; Visit Provider Physician Assistant | DX: M54.2 Cervicalgia (principal) | CPT/HCPCS: 99202 ==

== ENCOUNTER 2025-05-16 10:17 | Outpatient (REF) | payer MEDICARE, OTHER, SELFPAY ==
--- NOTE | ~2025-05-16 | US_ITS ---
EXAMINATION: US THYROID HISTORY: E04.1 - Nontoxic single thyroid nodule TECHNIQUE: Real-time grayscale ultrasound imaging was performed and images were reviewed. COMPARISON: There are no prior studies available for comparison. FINDINGS: SIZE: The right thyroid lobe is surgically absent. The left thyroid lobe measures 4.3 x 1.4 x 1.8 cm. FLOW: Flow to the gland is increased. ECHOGENICITY: The echotexture of the gland is heterogeneous. NODULES: There is a 6 x 4 x 6 mm cyst at the upper pole. In addition, solid nodules are noted as described below: Nodule #: 1 Location: Midportion of the left thyroid lobe measuring 1.5 x 0.9 x 1 2 cm. Shape: Wider than tall (0 points) Margins: Smooth (0 points) Echotexture: Indeterminate (1 point) Composition: Mixed (1 point) Calcifications: None (0 points) Total points: 2 TIRADS: TR2: Not suspicious Nodule #: 2 Location: Lower pole of the left thyroid lobe measuring 1.4 x 1.3 x 1.0 cm. Shape: Wider than tall (0 points) Margins: Smooth (0 points) Echotexture: Hypoechoic (2 points) Composition: Mixed (1 point) Calcifications: Macrocalcifications (1 point) Total points: 4 TIRADS: TR4: Moderately suspicious. US/US thyroid IMPRESSION: Status post right thyroidectomy. Left thyroid nodules as described. Follow-up is recommended. ACR TI-RADS Guidelines TR1 (0 points): Benign. No follow-up or biopsy required TR2 (2 points): Not Suspicious. No biopsy or follow up indicated TR3 (3 points): Mildly Suspicious. FNA if >= 2.5 cm, Follow if >= 1.5 cm TR4 (4-6 points): Moderately Suspicious. FNA if >= 1.5 cm, Follow if >= 1.0 cm TR5 (>=7 points): Highly Suspicious. FNA if >= 1.0 cm, Follow if >= 0.5 cm Electronically signed by: Negro Espino MD 05/16/2025 10:57 AM [facility]
--- OUTSIDE RECORDS SUMMARY | 2025-05-16 12:00 | XMS_ITS | Data Portability ---
Author Organization [facility], [facility] Address [address] [place] [address] Care Team Providers Care Director Speech And Hearing Name Role Phone BRIGIDOJAVIERMeraRHETT Referring Provider Assessment Encounter Date Assessment Date Assessment LastModified [...] and Address Organization Details Recorded Time 5 45604 Therapeutic Exercise (1:1) completed Pema Acosta, POLICE MANAGER [address], [place], [address], [facility] 10/03/2024 13:00:28 5 27997: Manual therapy completed Pema Acosta, POLICE MANAGER [address], [place], [address], [facility] 10/03/2024 13:00:28 5 31437 Therapeutic Exercise (1:1) completed Pema Acosta, POLICE MANAGER [address], [place], [address], [facility] 10/01/2024 14:42:22 5 97221: Manual therapy completed Pema Acosta, POLICE MANAGER [address], [place], [address], [facility] 10/01/2024 13:00:25 5 96038 Therapeutic Exercise (1:1) completed Asael Clancy, PT [address], [place], [address], [facility] 09/28/2024 01:02:50 5 67330: Manual therapy completed Asael Clancy, PT [address], [place], [address], [facility] 09/28/2024 01:02:50 5 22707 Therapeutic Exercise (1:1) completed Asael Clancy, PT [address], [place], [address], [facility] 09/25/2024 23:30:07 5 61391: Manual therapy completed Asael Clancy, PT [address], [place], [address], [facility] 09/25/2024 23:34:43 5 22636 Therapeutic Exercise (1:1) completed Pema Formjeanster, POLICE MANAGER [address], [place], [address], [facility] 09/19/2024 14:32:09 5 14914: Manual therapy completed Pema Formjeanstcici, POLICE MANAGER [address], [place], [address], [facility] 09/19/2024 14:32:09 5 33207 Therapeutic Exercise (1:1) completed Pema Formantonio, POLICE MANAGER [address], [place], [address], [facility] 09/17/2024 14:59:54 79163: Manual therapy completed Pema Acosta, POLICE MANAGER [address], [place], [address], [facility] 09/17/2024 13:17:50 5 99815 Therapeutic Exercise (1:1) completed Pema Acosta, POLICE MANAGER [address], [place], [address], [facility] 09/12/2024 13:18:57 5 46441: Manual therapy completed Pema Acosta, POLICE MANAGER [address], [place], [address], [facility] 09/12/2024 13:18:57 5 53462 Therapeutic Exercise (1:1) completed Pema Formantonio, POLICE MANAGER [address], [place], [address], [facility] 09/10/2024 13:52:21 5 76020: Manual therapy completed Pema Acosta, POLICE MANAGER [address], [place], [address], [facility] 09/10/2024 13:12:28 5 28115 Therapeutic Exercise (1:1) completed Pema Acosta, POLICE MANAGER [address] [facility], [place], [address], [facility] 09/07/2024 15:38:38 5 05945: Manual therapy completed Pema Acosta, POLICE MANAGER [address], [place], [address], [facility] 09/07/2024 15:38:50 5 28586 Therapeutic Exercise (1:1) completed Asael Clancy, PT [address], [place], [address], [facility] 09/07/2024 12:33:43 5 35966: Low complexity PT Eval completed Asael Clancy, PT [address], [place], [address], [facility] 09/07/2024 12:33:48 5 G8417 BMI Above Upper Parameters, F/U Documented completed Asael Clancy, PT [address], [place], [address], [facility] 09/07/2024 12:39:31 5 G8427 Current Medication Documented completed Asael Clancy, PT [address], [place], [address], [facility] 09/07/2024 12:39:50 Imaging Results None recorded. Procedure Notes None recorded. Medical Equipment None Reported. Allergies Allergen ID Allergen Name Allergen Category Reaction Reaction Severity Criticality Documentation Date Start Date Code Code System Note Provider Name and Address Organization Details Recorded Time 515385 Grass pollen (substanc e) environme nt,medica tion Not available Not available Not available 09/12/20232008 56255 7009 SNOMED Aller gyRea ction : 'Skin React ion'; Not Available [facility] 4 16:01:31 050227 Dust mite Not available Not available Not available Not available 09/12/20232008 Aller gyNam e: 'Dust '; Aller gyRea ction : 'Skin React ion'; Not Available [facility] 16:01:31 043529 codeine medicatio n Not available Not available Not available 09/12/20232014 2670 RxNorm Not Available [facility] 16:01:31 Vitals None Recorded Social History None recorded. Functional Status None recorded. Mental Status None recorded. Family History Nothing Reported. Medical History No medical history recorded. Past Encounters Encounter ID Performer Location Encounter Start Date Encounter Closed Date Diagnosis/Indication Diagnosis SNOMED-CT Code Diagnosis ICD10 Code Diagnosis IMO Codes Diagnosis Note [id number] Asael Clancy, PT [facility] [address] [place] [address] 09/05/2024 12:47:38 09/05/2024 13:27:14 Neck pain [id number] M54.2 [id number] Pema Formjeanste r, POLICE MANAGER [facility] [address] [place] [address] 09/10/2024 13:06:31 09/10/2024 14:24:47 Neck pain 06781221 M54.2 [id number] Pema Formejeste r, POLICE MANAGER [facility] [address] [place] [address] 09/07/2024 13:44:41 09/07/2024 14:48:31 Neck pain [id number] M54.2 [id number] Pema Formejeste r, POLICE MANAGER [facility] [address] [place] [address] 09/12/2024 13:00:41 09/12/2024 14:41:43 Neck pain [id number] M54.2 [id number] Pema Formejeste r, POLICE MANAGER [facility] [address] [place] [address] 09/17/2024 13:02:00 09/17/2024 13:21:09 Neck pain 70507692 M54.2 [id number] Pema Formejeste r, POLICE MANAGER [facility] [address] [place] [address] 09/19/2024 13:01:34 09/19/2024 14:42:40 Neck pain 22018148 M54.2 [id number] Asael Mccordo, PT [facility] [address] [place] [address] 09/24/2024 12:57:12 09/24/2024 14:15:28 Neck pain 36045054 M54.2 [id number] Asael Roseonso, PT [facility] [address] [place] [address] 09/26/2024 12:59:04 09/26/2024 14:22:28 Neck pain [id number] M54.2 [id number] Pema Formejeste r, POLICE MANAGER [facility] [address] [place] [address] 10/01/2024 12:52:34 10/01/2024 13:24:12 Neck pain [id number] M54.2 [id number] Pema Formejeste r, POLICE MANAGER [facility] [address] [place] [address] 10/03/2024 12:58:21 10/03/2024 14:26:19 Neck pain 40511546 M54.2 [id number] Health Concerns Section Related Observation LastModified by Organization Detai ls LastModified Time None Recorded Concern Status LastModified by Organization Details LastModified Time None Recorded Advance Directives Directive None Recorded Payers Insurance Date Sequence Insurance Name Policy Number Policy Garcia Covered Member ID Garcia Member ID Guarantor Name 10/08/2024 2 [facility] (MEDICAID HMO) [id number] Yumiko Braxtonor [id number] Yumiko [place] 09/05/2024 1 [place] [facility] Yumiko [place] [id number] Yumiko [place] 09/12/2024 1 [place] [employer] Yumiko [place] [id number] Yumiko [place] Notes Date Note Type Note Provider Name and Address Organization Details Recorded Time 09/19/2024 text/html Patient reports is not as tight as last time but not as tight as last time. Pema Acosta, POLICE MANAGER [address], [place], [address], [facility] 09/19/2024 14:36:43 09/24/2024 text/html Patient states had some increased tension/soreness R neck with standing T-band exs, stopped performing and seemed like it help decrease sx's. Pt states overall R c/s and Utrap px is less. Asael Clancy, PT [address], [place], [address], [facility] 09/25/2024 23:34:58 09/26/2024 text/html Patient states overall R c/s feeling better though still feels tight and occasional px Asael Clancy, PT [address], [place], [address], [facility] 09/28/2024 01:11:28 10/01/2024 text/html Patient states she went for a walk the other day and feels that increased her neck pain.. Pema Acosta, POLICE MANAGER [address], [place], [address], [facility] 10/01/2024 14:45:17 10/03/2024 text/html Patient reports cont tension in her neck but getting better. Pema Acosta, POLICE MANAGER [address], [place], [address], [facility] 10/03/2024 14:57:39
[2025-05-16 14:00] LABS: Cholesterol 207 mg/dL (<200); HDL Cholesterol 79 mg/dL (>40); Triglycerides 59 mg/dL (<150)
== END 2025-05-16 10:18 | disposition home or self-care (01) ==
LOC: HO.HMGCX 10:17
PROVIDERS: PCP Internal Medicine; Visit Provider Internal Medicine
DX: E04.1 Nontoxic single thyroid nodule (principal); E03.9 Hypothyroidism, unspecified; E78.5 Hyperlipidemia, unspecified
CPT/HCPCS: 36415; 76536; 80061; 84443

== ENCOUNTER → 2025-05-16 10:30 | Outpatient (BNV) | payer MEDICARE, OTHER, SELFPAY | PROVIDERS: PCP Internal Medicine; Visit Provider Radiology Diagnostic Radiology | DX: E04.1 Nontoxic single thyroid nodule (principal) | CPT/HCPCS: 76536 ==